=== PATIENT | female | born 1950 | race Hispanic/Latino ===

== ENCOUNTER 2016-10-06 12:59 | Emergency (ER) | payer OTHER ==
[2016-10-06 13:18] VITALS: TEMP 97.7; BMI 35.0
[2016-10-06] MEDS ORDERED: Sodium Chloride 0.9% 1,000 ML IV STA (13:57)
--- NOTE | 2016-10-06 14:06 | ED PDOC ---
Arrival/HPI - General Chief Complaint: Hip Pain Time Seen by Provider: 10/06/16 13:50 Historian: Patient - History of Present Illness Narrative History of Present Illness (Text): 10/06/16 13:50 Talisha Jolly is a 66 year old female, whose past medical history includes hypertension and cholecystectomy, who presents to the emergency room complaining of constant right-sided lower back pain since yesterday. Patient describes her pain to be "like someone is squeezing my kidney." Patient notes that she has been vomiting, patient thinks it is due to the Advil she took. Patient denies any abdominal pain, appetite changes, urinary symptoms, hematemesis, or any other complaint at this time. Time/Duration: 24 hours Symptom Onset: Gradual Symptom Course: Worsening Severity Level: Mild Activities at Onset: Light Context: Home Associated Symptoms (Text): 10/06/16 15:14 Right lower back pain with nausea and vomiting since yesterday. No radiation. No diarrhea. No genitourinary symptoms. No hematuria. No fever or chills. No injury or trauma. Patient has had multiple times previously. Past Medical History - Provider Review Nursing Documentation Reviewed: Yes - Past History Past History: No Previous - Infectious Disease Hx of Infectious Diseases: None - Tetanus Immunization Tetanus Immunization: Unknown - Cardiac Hx Hypertension: Yes - Psychiatric Hx Depression: No Hx Emotional Abuse: No Hx Physical Abuse: No Hx Substance Use: No - Surgical History Hx Cholecystectomy: Yes - Anesthesia Hx Anesthesia: No Hx Anesthesia Reactions: No Hx Malignant Hyperthermia: No - Suicidal Assessment Feels Threatened In Home Enviroment: No Family/Social History - Physician Review Nursing Documentation Reviewed: Yes Family/Social History: No Known Family HX Smoking Status: Never Smoked Hx Alcohol Use: No Hx Substance Use: No Hx Substance Use Treatment: No Allergies/Home Meds Allergies/Adverse Reactions: Allergies No Known Allergies Allergy (Verified 02/15/13 10:06) Home Medications: Home Meds Medication Instructions Recorded Confirmed Htz Unk Dose 02/15/13 02/15/13 Valsartan [Diovan] 0 mg PO 02/15/13 02/15/13 Review of Systems - Physician Review All systems were reviewed & negative as marked: Yes - Review of Systems Constitutional: absent: Fevers, Night Sweats Eyes: absent: Vision Changes ENT: absent: Hearing Changes Respiratory: absent: SOB, Cough, Wheezing Cardiovascular: absent: Chest Pain, Palpitations, Syncope Gastrointestinal: Vomiting. absent: Abdominal Pain, Nausea Genitourinary Female: absent: Dysuria, Frequency, Hematuria Musculoskeletal: Back Pain. absent: Neck Pain Skin: absent: Rash Neurological: absent: Headache, Dizziness, Focal Weakness Endocrine: absent: Diaphoresis Hemo/Lymphatic: absent: Adenopathy Psychiatric: absent: Depression Physical Exam Vital Signs Reviewed: Yes Vital Signs Temp Pulse Resp BP Pulse Ox 10/06/16 13:50 80 16 141/70 97 10/06/16 13:11 97.7 F 44 L 16 192/87 H 98 Temperature: Afebrile Blood Pressure: Hypertensive Pulse: Bradycardic Respiratory Rate: Normal Appearance: Positive for: Well-Appearing, Non-Toxic, Comfortable Pain Distress: Mild Mental Status: Positive for: Alert and Oriented X 3 - Systems Exam Head: Present: Atraumatic, Normocephalic Pupils: Present: PERRL Extroacular Muscles: Present: EOMI Conjunctiva: Present: Normal Mouth: Present: Moist Mucous Membranes Pharnyx: No: ERYTHEMA, EXUDATE, TONSILS ENLARGED Neck: Present: Normal Range of Motion Respiratory/Chest: Present: Clear to Auscultation, Good Air Exchange. No: Respiratory Distress, Accessory Muscle Use Cardiovascular: Present: Regular Rate and Rhythm, Normal S1, S2. No: Murmurs Abdomen: Present: Normal Bowel Sounds. No: Tenderness, Distention, Peritoneal Signs Back: Present: Normal Inspection. No: CVA Tenderness, Midline Tenderness, Paraspinal Tenderness, Pain with Leg Raise Upper Extremity: Present: Normal Inspection. No: Cyanosis, Edema Lower Extremity: Present: Normal Inspection. No: Edema Neurological: Present: GCS=15, CN II-XII Intact, Speech Normal, Motor Func Grossly Intact Skin: Present: Warm, Dry, Normal Color. No: Rashes Psychiatric: Present: Alert, Oriented x 3, Normal Insight, Normal Concentration Medical Decision Making ED Course and Treatment: 10/06/16 14:07 Impression: 66 year old female complaining of constant right-sided lower back pain since yesterday. Plan: -- Abdomen and pelvis w/o PO Contrast -- Toradol and IV Fluids -- Urinalysis -- Labs -- Reassess and disposition Progress Notes: 10/06/16 15:25 Patient is feeling much better and wants to go home. She will be discharged home accompanied by her daughter. She reports that she has been doing some heavy lifting. Her CT scan and workup is unrevealing. She will follow with PMD. She is off from work for the next several days. Follow up in ER as needed. She will be treated as a musculoskeletal back pain with Naprosyn and Flexeril. - Lab Interpretations Lab Results: 10/06/16 14:12 10/06/16 14:12 Lab Results 10/06/16 14:12: WBC 6.3, RBC 4.48, Hgb 12.9, Hct 38.3, MCV 85.5, MCH 28.8, MCHC 33.7, RDW 13.1, Plt Count 266, MPV 9.7, Gran % 69.7 H, Lymph % (Auto) 25.0, [place] % (Auto) 4.6, Eos % (Auto) 0.5 L, Baso % (Auto) 0.2, Gran # 4.37, Lymph # 1.6, Rutherford # 0.3, Eos # 0.0, Baso # 0.01, Sodium 139, Potassium 3.7, Chloride 102 , Carbon Dioxide 30, Anion Gap 11, BUN 12, Creatinine 0.6, Est GFR ( Amer ) > 60, Est GFR (Non-Af Amer) > 60, Random Glucose 127 H, Calcium 9.4, Total Bilirubin 0.8, AST 19, ALT 22, Alkaline Phosphatase 59, Total Protein 7.6, Albumin 4.2, Globulin 3.4, Albumin/Globulin Ratio 1.2, Lipase 36 10/06/16 14:10: Urine Color Yellow, Urine Appearance Clear, Urine pH 5.5, Ur Specific [place] >= 1.030, Urine Protein Negative, Urine Glucose (UA) Negative, Urine Ketones Negative, Urine Blood Moderate H, Urine Nitrate Negative, Urine Bilirubin Negative, Urine Urobilinogen 0.2, Ur Leukocyte Esterase Small H, Urine RBC 2 - 5, Urine WBC 2 - 5, Ur Epithelial Cells Many, Urine Bacteria Few I have reviewed the lab results: Yes - RAD Interpretation Radiology Orders: 10/06/16 13:57 ABD & PELVIS W/O PO OR IV CONT [CT] Stat CT scan of the abdomen and pelvis as read by the radiologist shows no acute findings Aquaculturist: Radiologist - Medication Orders Current Medication Orders: Discontinued Medications Sodium Chloride (Sodium Chloride 0.9%) 1,000 mls @ 1,000 mls/hr IV .Q1H STA Stop: 10/06/16 14:56 Last Admin: 10/06/16 14:25 Dose: 1,000 MLS/HR eMAR Start Stop Document 10/06/16 14:25 MMA (Rec: 10/06/16 14:25 MMA [email or web address]) Intravenous Solution Start Date 10/06/16 Start Time 14:25 End Date 10/06/16 End time 15:25 Total Infusion Time 60 Ketorolac Tromethamine (Toradol) 15 mg IVP STAT STA Stop: 10/06/16 13:58 Last Admin: 10/06/16 14:48 Dose: 15 MG IVP Administration Document 10/06/16 14:48 MMA (Rec: 10/06/16 14:48 MMA [email or web address]) Charges for Administration # of IVP Administrations 1 - Scribe Statement Joseline Arauz Provider Scribe Attestation: All medical record entries made by the Scribe were at my direction and personally dictated by me. I have reviewed the chart and agree that the record accurately reflects my personal performance of the history, physical exam, medical decision making, and the department course for this patient. I have also personally directed, reviewed, and agree with the discharge instructions and disposition. Disposition/Present on Arrival - Present on Arrival Any Indicators Present on Arrival: No History of DVT/PE: No History of Uncontrolled Diabetes: No Urinary Catheter: No History of Decub. Ulcer: No History Surgical Site Infection Following: None - Disposition Have Diagnosis and Disposition been Completed?: Yes Diagnosis: Low back pain Disposition: HOME/ ROUTINE Disposition Time: 15:27 Patient Plan: Discharge Condition: IMPROVED Discharge Instructions (ExitCare): Acute Low Back Pain (ED) Additional Instructions: Rest and moist heat. Follow-up with PMD. Follow up in ER as needed. Prescriptions: Cyclobenzaprine [Flexeril] 5 mg PO Q8 #15 tab Naproxen [Naprosyn] 500 mg PO BID #14 tab
[2016-10-06 14:20] LABS: PH,URINE 5.5 (4.7-8.0); URINE BILIRUBIN NEGATIVE (NEGATIVE); URINE BLOOD MODERATE (NEGATIVE); URINE GLUCOSE (UA) NEGATIVE (NEGATIVE); URINE KETONE NEGATIVE (NEGATIVE); URINE LEUKOCYTE ESTERASE SMALL Leu/uL (NEGATIVE); URINE PROTEIN NEGATIVE mg/dL (<30 mg/dL); URINE UROBILINOGEN 0.2 E.U./dL (<1 E.U./dL)
[2016-10-06 14:21] LABS: ADD MANUAL DIFF? NO
[2016-10-06 14:21] LABS: URINE APPEARANCE CLEAR (CLEAR); URINE COLOR YELLOW (YELLOW)
[2016-10-06 14:25] LABS: BASO # 0.01 K/mm3 (0.0-2.0); BASO % 0.2 % (0.0-3.0); EOS % 0.5 % (1.5-5.0); GRAN # 4.37 (1.4-6.5); GRAN % 69.7 % (50.0-68.0); HEMATOCRIT 38.3 % (36.0-48.0); LYMPH # 1.6 (1.2-3.4); MEAN CELL VOLUME 85.5 fL (80.0-105.0); MEAN CORPUSCULAR HEMOGLOBIN 28.8 pg (25.0-35.0); MEAN CORPUSCULAR HGB CONC 33.7 g/dl (31.0-37.0); MEAN PLATELET VOLUME 9.7 fl (7.0-11.0); MONO # 0.3 (0.1-0.6); MONO % 4.6 % (1.0-6.0); PLATELET COUNT 266 10^3/uL (120.0-450.0); RED CELL DISTRIBUTION WIDTH 13.1 % (11.5-14.5); WHITE BLOOD COUNT 6.3 10^3/ul (4.5-11.0)
[2016-10-06 14:35] LABS: ALB/GLOB RATIO 1.2 (1.1-1.8); ALKALINE PHOSPHATASE 59 U/L (38-133); ALT/SGPT 22 U/L (7-56); AST/SGOT 19 U/L (15-39); BILIRUBIN,TOTAL 0.8 mg/dL (0.2-1.3); BLOOD UREA NITROGEN 12 mg/dL (7-21); CALCIUM 9.4 mg/dL (8.4-10.5); CARBON DIOXIDE 30 mmol/L (21-33); CHLORIDE 102 mmol/L (98-107); GFR AFRICAN-AMERICAN > 60; GLUCOSE,RANDOM 127 mg/dL (70-110); LIPASE 36 U/L (23-300); POTASSIUM 3.7 mmol/L (3.6-5.0); SODIUM 139 mmol/L (132-148); TOTAL PROTEIN 7.6 g/dL (5.8-8.3)
[2016-10-06 14:42] LABS: URINE BACTERIA FEW (NEG); URINE EPITHELIAL CELLS MANY /hpf (0-5)
[2016-10-06 14:43] VITALS: BP 141/70
--- NOTE | 2016-10-06 15:12 | CT ---
PROCEDURE: CT Abdomen and Pelvis without Oral or IV contrast. HISTORY: right stone run COMPARISON: CT abdomen and pelvis performed 09/07/13 TECHNIQUE: Contiguous axial images of the abdomen and pelvis. No oral or IV contrast administered. Coronal and Sagittal reformats generated and reviewed. Radiation dose: Total exam DLP = 904.46 mGy-cm. FINDINGS: There is limited evaluation of the solid organs without the administration of IV contrast. LOWER THORAX: No visible consolidation, pleural effusion, or pneumothorax. LIVER: Unremarkable unenhanced appearance. GALLBLADDER AND BILE DUCTS: Cholecystectomy. PANCREAS: Unremarkable unenhanced appearance. SPLEEN: 8 mm probable splenule. Otherwise unremarkable unenhanced appearance. ADRENALS: Unremarkable unenhanced appearance. KIDNEYS AND URETERS: No hydronephrosis or obstructing renal calculus. BLADDER: The urinary bladder appears unremarkable. REPRODUCTIVE: Uterus is present. APPENDIX: No secondary signs of acute appendicitis. BOWEL: The stomach is nondistended. Lack of oral contrast limits evaluation for bowel pathology. The bowel loops appear within normal limits of caliber without evidence of intestinal obstruction. Diverticulosis without CT evidence of acute diverticulitis. PERITONEUM: No significant free fluid. No definite free air. LYMPH NODES: Scattered sub cm mesenteric and retroperitoneal lymph nodes, nonspecific. VASCULATURE: Scattered atherosclerotic calcifications. No aortic aneurysm. BONES: Degenerative changes of the spine. OTHER FINDINGS: None. IMPRESSION: Cholecystectomy. No hydronephrosis or obstructing calculus identified. Diverticulosis without CT evidence of acute diverticulitis.
[2016-10-06 15:45] VITALS: PULSE 82; RESP 18; O2SAT 98
--- NOTE | 2016-10-07 09:44 | CARD ---
APPROVED REPORT EKG Measurement Heart [id number] <Conclusion> Sinus rhythm with ventricular bigeminy
== END 2016-10-06 15:43 | disposition home or self-care (01) ==
LOC: ED 12:59
DX: M54.5 Low back pain (principal); I10 Essential (primary) hypertension
CPT/HCPCS: 74176; 80053; 81001; 83690; 85025; 87086; 93005; 96361; 96374; 99284; J1885; J7040

== ENCOUNTER 2018-05-26 10:57 | Day surgery (SDC) | payer OTHER, MEDICARE ==
[2018-05-26] MEDS ORDERED: Propofol 10 mg/ml Inj (20 ML) ONE ×2 (14:24→14:55)
[2018-05-26 15:12] VITALS: RESP 16; O2SAT 99
[2018-05-26] MEDS ORDERED: Sodium Chloride 0.9% 1,000 ML IV SCH (15:15)
[2018-05-26 15:58] VITALS: BP 141/84; PULSE 73; TEMP 98
== END 2018-05-26 16:35 | disposition home or self-care (01) ==
LOC: ENDO 10:57
PROVIDERS: ATTEND Internal Medicine Gastroenterology
DX: Z12.11 Encounter for screening for malignant neoplasm of colon (principal); K57.30 Diverticulosis of large intestine without perforation or abscess without bleeding; K22.10 Ulcer of esophagus without bleeding; K21.0 Gastro-esophageal reflux disease with esophagitis; K44.9 Diaphragmatic hernia without obstruction or gangrene; K29.50 Unspecified chronic gastritis without bleeding; K64.8 Other hemorrhoids; Z86.010 Personal history of colon polyps
CPT/HCPCS: 43239; 45378; 88305; 88312; 88342; J2001; J2704; J7030; J7040

== ENCOUNTER 2018-09-23 08:35 | Outpatient (CLI) | payer OTHER | END 2018-09-23 08:36 | disposition home or self-care (01) | LOC: LAB 08:35 ==

== ENCOUNTER 2018-11-14 07:33 | Day surgery (SDC) | payer OTHER ==
[2018-11-12 11:18] VITALS: BMI 32.5
[2018-11-14] MEDS ORDERED: Sodium Chloride 0.9% 1,000 ML IV SCH (08:45)
[2018-11-14] MEDS ORDERED: Propofol 10 mg/ml Inj (20 ML) ONE (09:03)
[2018-11-14 10:20] VITALS: RESP 16
[2018-11-14 11:05] VITALS: BP 142/83; PULSE 72; TEMP 98.2; O2SAT 97
== END 2018-11-14 11:19 | disposition home or self-care (01) ==
LOC: ENDO 07:33
PROVIDERS: ATTEND Internal Medicine Gastroenterology
DX: K21.9 Gastro-esophageal reflux disease without esophagitis (principal); K31.7 Polyp of stomach and duodenum; K44.9 Diaphragmatic hernia without obstruction or gangrene; K29.70 Gastritis, unspecified, without bleeding; I10 Essential (primary) hypertension; E11.9 Type 2 diabetes mellitus without complications; Z79.84 Long term (current) use of oral hypoglycemic drugs
CPT/HCPCS: 43239; 82948; 88305; 88312; 88342; J2001; J2704; J7030; J7040